=== PATIENT | male | born 1975 | race Caucasian/White ===

== ENCOUNTER 2021-06-27 20:10 | Emergency (ER) | payer MEDICAID ==
[~2021-06-27] VITALS: Ht 175.3 cm; Wt 91.8 kg
[2021-06-27 20:42] VITALS: BP 167/129
[2021-06-27] MEDS ORDERED: ATEN100T PO (20:52)
[2021-06-27] MEDS ORDERED: nicotine 21mg patch - 24 hr TD ONE (21:10)
[2021-06-27] MEDS ORDERED: ATEN-169 PO (21:39)
[2021-06-27] MEDS ORDERED: ALBU8HFA PO (21:39)
[2021-06-27] MEDS ORDERED: DOXY100C76 PO (21:39)
== END 2021-06-27 21:46 | disposition home or self-care (01) ==
LOC: ER 20:10
DX: J20.9 Acute bronchitis, unspecified (principal); Z20.822 Contact with and (suspected) exposure to COVID-19; I10 Essential (primary) hypertension; R05.9 Cough, unspecified; R06.2 Wheezing; F17.200 Nicotine dependence, unspecified, uncomplicated; Z72.89 Other problems related to lifestyle; Z59.00 Homelessness unspecified; Z88.1 Allergy status to other antibiotic agents; Z88.0 Allergy status to penicillin; Z88.8 Allergy status to other drugs, medicaments and biological substances; Z79.899 Other long term (current) drug therapy
CPT/HCPCS: 71045; 87635; 99284; C9803